=== PATIENT | male | born 1990 | race Two or more races ===

== ENCOUNTER 2021-11-06 14:47 | Outpatient (CLI) | payer BC, SELFPAY | END 2021-11-06 23:59 | disposition short-term general hospital (02) | LOC: LABSPEC 14:48 | PROVIDERS: Visit Provider Physician Assistant Surgical | DX: Z11.52 Encounter for screening for COVID-19 (principal) | CPT/HCPCS: 87635; U0003; U0005 ==

== ENCOUNTER 2022-03-12 23:06 | Emergency (ER) | payer BC, SELFPAY ==
[2022-03-12 23:08] VITALS: BP 116/84; PULSE 85; RESP 18; TEMP 37; O2SAT 100; BMI 27.1
--- NOTE | 2022-03-12 23:24 | ED.VIS.GI ---
HPI HPI - GI History of Present Illness Chief Complaint: Nausea/Vomiting Informant: patient Abdominal Pain/Flank Pain Onset: Today and Hours Context: Gradual Onset Timing: Continuous Quality: Aching and Cramping Location: Epigastric and LUQ Current Severity: Mild Maximum Severity: Mild Worsened by: Nothing Relieved by: Nothing Nausea/Vomiting/Emesis GI Symptom: Positive for Nausea; Negative for Vomiting Onset: Today Severity: Mild Diarrhea/Melena/Hematochezia GI Symptom: Negative for Diarrhea, Melena and Hematochezia Associated Symptoms Associated Symptoms: Negative for Dysuria, Frequency, Hematuria and Urgency Narrative Narrative: 31-year-old male no significant past medical or surgical history. No prior abdominal surgeries. Stated that tonight around 7 PM started having nausea and vomiting. Thought he might have food poisoning. But his significant other ate similar lunch today and had no symptoms. He denies diarrhea. No melena. He had COVID 1 week ago the symptoms have resolved. He denies any dysuria. No fever. He has had no recent abdominal complaints. No weight loss. Prior similar symptoms: No Recent Illness/Hospitalization: No PFSH PFSH Medical History COVID-19 Home Medications ondansetron 4 mg PO Q6H PRN #7 tab 03/13/22 [Rx Last Taken Unknown] Allergy/AdvReac Type Severity Reaction Status Date / Time No Known Allergies Allergy Verified 03/12/22 23:07 Surgical History no surgical history no surgical history Social History Smoking Status: Never smoker ROS ROS ED ROS Narrative Abdominal pain. Nausea. Review of Systems ROS Unobtainable: Denies due to encephalopathy Constitutional Constitutional ED: Denies fever(s) ENT ENT ED: Denies ear pain Cardiovascular Cardiovascular: Denies chest pain Respiratory/Chest Respiratory/Chest: Denies dyspnea Gastrointestinal Gastrointestinal: Reports abdominal pain and nausea; Denies constipation, diarrhea, melena or vomiting Genitourinary Genitourinary ED: Denies dysuria Musculoskeletal Musculoskeletal: Denies myalgias Integumentary Denies rash Neurologic Neurologic: Denies headache(s) Psychiatric Psychiatric: Denies depression Endocrine Endocrinology: Denies polyuria Hematologic/Lymphatic Hematologic/Lymphatic: Denies easy bruising Allergic/Immunologic Allergic/Immunologic ED: Denies urticaria EXAM Physical Exam Narrative Exam Narrative: 31-year-old male no acute distress. Vital signs are stable. He is afebrile. He does not look septic or toxic. H EENT exam unremarkable. Moist membranes. Neck nontender. No lymphadenopathy. Lungs are clear to auscultation. Heart regular rhythm no murmur. Abdomen soft nondistended normal bowel sounds no peritoneal signs. Minimal epigastric tenderness. No rebound, guarding or rigidity. No Butler sign. Absolutely no McBurney's point or lower abdominal tenderness. No hernia or mass. No signs of obstruction. Moves all 4 extremities. Back nontender. Neurologic exam normal. Const Vital Signs: 03/12/22 23:08 03/12/22 23:32 03/12/22 23:56 Temperature 98.6 F Temperature Source Oral Pulse Rate 85 78 Respiratory Rate 18 12 Blood Pressure 116/84 H 76/43 L 99/66 Blood Pressure Mean 94 54 77 Pulse Ox 100 99 Oxygen Delivery Method Room Air Room Air Positive well nourished and well developed; Negative for cachectic, contractures or unkempt General Appearance ED: well developed and NAD; Negative for unkempt, cachectic, contractures or pallor Nutritional Appearance: Negative for cachectic HEENT Reports moist mucous membranes normocephalic and atraumatic Eyes PERRL and EOMs intact bilaterally Neck no lymphadenopathy, supple and no JVD General: Negative for tenderness Resp normal respiratory effort and clear to auscultation bilaterally Auscultation: Negative for rales, rhonchi or wheezes Cardio regular rate, regular rhythm, S1 normal heart sound, S2 normal heart sound and no murmurs GI non-distended and no masses; Negative for non-tender Inspection: Negative for abdominal distention Auscultation: normoactive bowel sounds; Negative for hyperactive bowel sounds or hypoactive bowel sounds Palpation: soft and tender; Negative for guarding, rigid or rebound tenderness present Back/Spine no CVA tenderness General Back: Negative for CVA tenderness Cervical Spine: Negative for cervical spine tenderness Thoracic Spine / Upper Back: Negative for thoracic spinal tenderness Extremity full ROM General Extremety ED: Negative for edema or tenderness General Extremity: Negative for edema Neuro moves all extremities Sensorium / Orientation: alert, oriented to person, oriented to place and oriented to time; Negative for orientation impaired, confused, lethargic or stuporous Motor Exam: strength 5/5 throughout Psych mental status grossly normal and thought process normal Appearance: Negative for unkempt Mood & Affect: Negative for depressed or tearful Skin no wounds General Skin Exam: Negative for jaundice or pallor Lesions: no lesions Rashes: no rashes MDM MDM MDM Narrative Medical decision making narrative: 31-year-old male with upper abdominal discomfort with nausea. He is only mildly tender. Screening labs are being obtained. At this time I do not think he needs any imaging. He will be treated with IV Zofran for nausea. Repeat exam at 12:24 AM. Patient doing well. Pain-free. Nausea resolved. Repeat abdominal exam is nontender. No signs of obstruction. We discussed his test results. He is comfortable being discharged to home. Lab Data Attestation: I reviewed the patient's lab results. Lab results narrative: CBC shows a white count 12.7. H&H is 16 and 49. Platelets of 298. Chemistries on markable. Gap of 5. Normal BUN of 18 creatinine 1.2. Liver enzymes unremarkable ALT slightly elevated at 63. Lipase normal 116. Glucose 140. Labs: Laboratory Results - last 24 hr 03/12/22 03/12/22 23:40 23:40 WBC 12.7 H RBC 5.76 Hgb 16.2 Hct 49.0 MCV 85.1 MCH 28.1 MCHC 33.1 RDW Std Deviation 39.7 RDW Coeff of Diana 12.9 Plt Count 298 MPV 11.1 Immature Gran % (Auto) 0.600 Neut % (Auto) 77.5 H Lymph % (Auto) 12.9 L [place] % (Auto) 7.9 Eos % (Auto) 0.8 Baso % (Auto) 0.3 Absolute Neuts (auto) 9.9 H Absolute Lymphs (auto) 1.64 Nucleated RBC % 0 Sodium 139 Potassium 4.4 Chloride 107 Carbon Dioxide 27.0 Anion Gap 5 BUN 18 Creatinine 1.20 Estim Creat Clear Calc 93.25 Est GFR (MDRD) Af Amer 89 Est GFR (MDRD) Non-Af 74 BUN/Creatinine Ratio 15.0 Glucose 140 H Calcium 8.9 Total Bilirubin 0.60 AST 33 ALT 63 H Alkaline Phosphatase 74 Total Protein 7.6 Albumin 3.9 Globulin 3.7 Albumin/Globulin Ratio 1.1 Lipase 116 Discharge Plan Triage Chief Complaint: Nausea/Vomiting ED Provider: Wilbur Pierre Dx/Rx/DC Orders Instructions: Abdominal Pain, ED Vomiting (Adult) Prescriptions: New ondansetron 4 mg tablet,disintegrating 4 mg PO Q6H PRN (Reason: nausea and vomiting) Qty: 7 RF: 0 Primary Care Provider: Andrzej Arango Referrals: Andrzej Arango, PA [Primary Care Provider] - 3-5 Days if not improving Activity Restrictions/Additional Instructions: Zofran as needed for nausea. Follow-up with your primary care provider if not improving. Return emergency department if you are feeling a lot worse. Flathead diet and slowly increase your diet as tolerated. Disposition Disposition: Home, Self Care
[2022-03-12 23:32] VITALS: BP 76/43
[2022-03-12] MEDS: Ondansetron 4 MG/2 ML Vial IV (23:39)
--- NOTE | 2022-03-12 23:47 | ED.RN ---
Jamal Pearce and this RN at bedside attempting for IV access. Patient c/o dizziness and patients family yelling at RNs to stop. RNs stopped attempting for IV. Family asked if it was necessary for us to get an IV and if we could give him oral zofran instead. Patients family asking for water for patient. RN has informed them the IV is necessary for bloodwork,and give Zofran through IV. RN also informed them the patient was c/o vomiting and we would hold off on giving water. Patients family in hallway yelling for RN to give a bag for patient to throw up. Patient vomited on himself and emesis bag given. IV access by JAMAL Mora. patient changed into gown, cleaned with wash cloth and bed linens changed.
[2022-03-12 23:55] LABS: Absolute Lymphocyte Count 1.64 X10^3/uL (0.83-4.51); Absolute Neutrophil Count 9.9 X10^3/uL (2.0-7.7); Basophil# 0.04 X10^3/uL; Basophil% 0.3 % (0-1); Eosinophils% 0.8 % (0-5); Hemoglobin 16.2 g/dL (13.0-16.5); Lymphocyte # 1.64 X10^3/ul (0.83-4.51); Lymphocyte % 12.9 % (19-41); Mean Corp Hgb Conc 33.1 g/dL (32-36); Mean Corpuscular Hgb 28.1 pg (27.0-32.0); Mean Corpuscular Volume 85.1 fL (80-94); Mean Platelet Vol. 11.1 fl (6.2-12.0); Monocyte% 7.9 % (0-10); NRBC Flagged by Analyzer 0 % (0-5); Neutrophil # 9.85 X10^3/uL (2.7-7.7); Neutrophil % 77.5 % (47-70); Platelet Count 298 K/mm3 (150-450); RBC Distribution Width CV 12.9 % (11.6-14.6); RBC Distribution Width SD 39.7 fl (35.1-43.9); Red Blood Count 5.76 M/mm3 (4.6-6.2); White Blood Count 12.7 K/mm3 (4.4-11.0)
[2022-03-12 23:56] VITALS: BP 99/66; PULSE 78; RESP 12; O2SAT 99
[2022-03-13 00:13] LABS: ALB/GLOB Ratio 1.1 RATIO (0.9-2.4); AST(SGOT) 33 U/L (15-37); Alanine Aminotransfer ALT/SGPT 63 U/L (16-61); Albumin, Serum 3.9 g/dL (3.2-5.0); Alkaline Phosphatase 74 U/L (45-117); Anion Gap 5 (5-15); BUN 18 mg/dL (7-18); Calcium,Total 8.9 mg/dL (8.5-10.1); Chloride 107 mmol/L (98-107); EST Glomerular Filtration Rate 74 mL/min (>60); Est Glom Filt Rate - Afr Amer 89 mL/min (>60); Estimated Creatinine Clearance 93.25 ml/min; Globulin 3.7 g/dL (2.2-4.2); Glucose 140 mg/dL (74-106); Lipase 116 U/L (73-393); Potassium 4.4 mmol/L (3.5-5.1); Protein, Total 7.6 g/dL (6.4-8.2); Sodium Level 139 mmol/L (136-145)
[2022-03-13] MEDS: 0.9% Normal Saline 1,000 ML 500 ML IV (00:36)
[2022-03-13] MEDS: Ondansetron ODT 4 MG Tablet PO (00:36)
[2022-03-13 00:37] VITALS: BP 107/69; PULSE 82; RESP 18; O2SAT 98
== END 2022-03-13 00:40 | disposition home or self-care (01) ==
PROVIDERS: Emergency Provider Emergency Medicine; PCP Physician Assistant; Visit Provider Emergency Medicine
DX: R11.0 Nausea (principal); R19.7 Diarrhea, unspecified; R10.9 Unspecified abdominal pain; K92.1 Melena; Z86.16 Personal history of COVID-19
CPT/HCPCS: 80053; 83690; 85025; 96361; 96374; 99285; J7030; A4216; J2405

== ENCOUNTER 2022-12-15 23:04 | Emergency (ER) | payer BC, SELFPAY ==
[2022-12-15 23:05] VITALS: BP 126/97; PULSE 66; RESP 15; TEMP 36.6; O2SAT 100; BMI 29.2
--- NOTE | 2022-12-15 23:18 | EDS_ITS ---
HPI History of Present Illness Chief Complaint: Eye Problem Informant: patient Onset/Context/Timing Location: Left Eye Onset: Today Context: Sudden Onset Timing: Continuous Worsened by: Opening his eye and moving his eye Relieved by: Erythromycin ophthalmic ointment Associated Symptoms Associated Symptoms - Eyes: Eyelid swelling and Pain History of injury: Yes and Direct trauma Narrative Narrative: Presents with left eye injury that occurred tonight. Patient states he was installing a fan when the plug hit him in the eye. Patient denies any visual changes. Patient states the pain is worse whenever he opens his eyes and moves his eye. Patient admits to some increased redness. Patient states he has a history of frequent corneal abrasions and applied erythromycin ophthalmic ointment to his left eye. Patient states this helped somewhat. Patient denies any headaches. Patient denies any nausea or vomiting. Patient denies any matting or crusting. Prior similar symptoms: Yes [facility] [place] [place] Medical History (Updated 12/15/22 @ 23:[address] Ken Urbano DO) COVID-19 Depression Home Medications desvenlafaxine succinate 50 mg tablet,extended release 24 hr 50 mg PO DAILY 12/15/22 [History Last Taken Unknown] Allergy/AdvReac Type Severity Reaction Status Date / Time No Known Allergies Allergy Verified 12/15/22 23:08 Surgical History no surgical history no surgical history Social History Smoking Status: Never smoker ROS ROS ED Constitutional Constitutional ED: Denies chills or fever(s) Eyes Eyes: Denies blurry vision or change in vision ENT ENT ED: Denies rhinorrhea or sore throat Cardiovascular Cardiovascular: Denies chest pain or palpitations Respiratory/Chest Respiratory/Chest: Denies cough or dyspnea Gastrointestinal Gastrointestinal: Denies nausea or vomiting Genitourinary Genitourinary ED: Denies dysuria or hematuria Musculoskeletal Musculoskeletal: Denies back pain or neck pain Integumentary Denies abscess or rash Neurologic Neurologic: Denies headache(s) or weakness Allergic/Immunologic Allergic/Immunologic ED: Denies mouth swelling or urticaria EXAM Physical Exam Const Vital Signs: 12/15/22 23:05 Temperature 97.9 F Temperature Source Temporal Pulse Rate 66 Respiratory Rate 15 Blood Pressure 126/97 H Blood Pressure Mean 106 Pulse Ox 100 Oxygen Delivery Method Room Air Positive well nourished and well developed General Appearance ED: well developed and NAD Eyes Eyes Narrative: There is some mild edema over the left upper eyelid. Conjunctival was injected on the left. Pupils are equal, round, and reactive to light bilaterally. Extraocular muscles are intact. Anterior chamber is clear. There is no hyphema noted. Patient was unable to tolerate funduscopic examination. Neck supple and no JVD Neuro oriented x3, CN's II-XII intact bilaterally, moves all extremities and no sensory deficits noted Sensorium / Orientation: alert Motor Exam: strength 5/5 throughout MDM MDM MDM Narrative Medical decision making narrative: This is most likely a corneal abrasion due to the trauma. Tetracaine and fluorescein dye will be applied to the left eye. The eye will be examined using a slit lamp. Treatment and Re-Evaluation Narrative: Tetracaine and fluorescein dye was applied. Under slit-lamp examination. There is a corneal abrasion over the inferior central cornea. There is no hyphema. Anterior chamber was clear. There is no cell or flare. Patient was given erythromycin ophthalmic ointment since his ophthalmic ointment has . Patient was instructed to use this 4 times daily. 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 Patient understands and is agreeable with the plan. All questions were answered. Discharge Plan Triage Chief Complaint: Eye Problem ED Provider: Ken Urbano Dx/Rx/DC Orders Clinical Impression: Corneal abrasion, left Instructions: ED Corneal Abrasion Prescriptions: No Action desvenlafaxine succinate 50 mg tablet extended release 24 hr 50 mg PO DAILY Label Comments: TAKE 1 TABLET BY MOUTH EVERY DAY Primary Care Provider: Andrzej Arango Referrals: Andrzej Arango PA [Primary Care Provider] - 2 Days Activity Restrictions/Additional Instructions: Continue using the erythromycin ophthalmic ointment 4 times a day. Disposition Disposition: Home, Self Care
[2022-12-15] MEDS: Fluorescein 1 MG STRIP 1 STRIP OPHTHALMIC (23:28)
[2022-12-15] MEDS: Tetracaine 0.5% Ophthalmic Bottle 1 DRP OPHTHALMIC (23:29)
[2022-12-16] MEDS: Erythromycin Ophthalmic (NSY) 1 GM OPTH.TUBE 1 APPLIC LEFT EYE (01:02)
== END 2022-12-16 01:06 | disposition home or self-care (01) ==
LOC: ED 23:44
PROVIDERS: Emergency Provider Emergency Medicine; PCP Physician Assistant; Visit Provider Emergency Medicine
DX: S05.02XA Injury of conjunctiva and corneal abrasion without foreign body, left eye, initial encounter (principal); W22.8XXA Striking against or struck by other objects, initial encounter
CPT/HCPCS: 99283

== ENCOUNTER 2022-12-16 10:31 | Emergency (ER) | payer BC, SELFPAY ==
[2022-12-16 10:32] VITALS: BP 135/92; PULSE 64; RESP 14; TEMP 35.8; O2SAT 100; BMI 28.9
--- NOTE | 2022-12-16 10:49 | EDS_ITS ---
HPI <PACO Kapadia - Last Filed: 12/16/22 11:48> History of Present Illness Chief Complaint: Eye Problem Narrative Narrative: Patient is a 32-year-old male with no significant medical history. Patient presents the emergency department for ongoing left eye pain. Patient was seen here last night for the same. Patient was putting in a fan, when the cord came down striking him in the left eye. Patient was seen last night by the ER physician here. Patient was placed on ointment, diagnosed with a corneal abrasion in the inferior mid cornea. Patient states today, his eyelid was more swollen, he continued to have pain and is here for reevaluation. He denies any other gross drainage. Denies any other injury PFSH <PACO Kapadia - Last Filed: 12/16/22 11:48> PFSH Medical History (Updated 12/16/22 @ 11:48 by PACO Kapadia) COVID-19 Depression Home Medications desvenlafaxine succinate 50 mg tablet,extended release 24 hr 50 mg PO DAILY 12/15/22 [History Last Taken Unknown] ketorolac 0.4 % eye drops 1 drp LEFT EYE Q6H 2 days #5 mL 12/16/22 [Rx Last Taken Unknown] ketorolac 0.4 % eye drops 1 drp LEFT EYE Q6H PRN eye pain 2 days #5 mL 12/16/22 [Rx Last Taken Unknown] Allergy/AdvReac Type Severity Reaction Status Date / Time No Known Allergies Allergy Verified 12/16/22 10:34 Social History Smoking Status: Never smoker ROS <PACO Kapadia - Last Filed: 12/16/22 11:48> ROS ED ROS Narrative Constitutional: Negative for fever, chills, weight loss, weakness Eyes: Negative for vision loss, vision change, double vision. Positive for left eye swelling, left eye tearing, pain to the left eye. Light sensitivity. ENT: Negative for any sore throat, ear pain, congestion Cardiovascular: Negative for any chest pain, tightness, palpitations Respiratory: Negative for any cough, sputum production, hemoptysis, dyspnea, dyspnea on exertion, orthopnea Gastrointestinal: Negative for any abdominal pain, nausea, vomiting, diarrhea, constipation, blood in stool, blood in vomit : Negative for any urinary frequency, dysuria, retention, blood in urine Muscle skeletal: Negative for any muscle joint pain, stiffness, myalgias, arthralgias, neck pain, back pain Neurological: Negative for any headache, syncope, numbness or tingling, dizziness Skin: Negative for any rashes, lumps, itching, abrasions, lacerations Psychiatric: Negative for any depression, anxiety, stress, suicidal ideation, homicidal ideation Hematologic: Negative for any easy bruising, excessive bruising, easy bleeding Allergies: Negative for any eczema, hives, rash EXAM <PACO Kapadia - Last Filed: 12/16/22 11:48> Physical Exam Narrative Exam Narrative: Vital signs reviewed. HEET: Head normocephalic atraumatic, TMs clear bilaterally. Posterior pharynx is clear, moist mucous membranes. Nares clear bilaterally. Pupils are equal round reactive to light. Patient does appear to be in minor distress secondary to left eye pain and swelling. Patient does have slight edema to the left upper eyelid however, this does not appear to be cellulitis, there is no foreign body noted. I was able to fluorescein stain, used tetracaine for the patient. Patient had immediate relief. I appreciated a midline inferior corneal abrasion, no Delmy sign. This is consistent with the last night examination. There is no foreign body noted. Neck: Supple with no lymphadenopathy or tenderness. No signs of meningismus, negative jolt sign. Cardiac: Regular rate and rhythm no murmurs gallops or rubs, equal peripheral pulses bilaterally. Respiratory: Lungs clear to auscultation bilaterally. No chest tenderness. Abdomen: Soft, nontender, nondistended. No abdominal bruit or pulsatile masses. No hepatosplenomegaly Extremities: No peripheral edema, no signs of gross trauma or deformity. Active full range of motion of all extremities. Neuro: Cranial nerves II through XII intact, no focal neurological deficits. Skin: Clean dry and intact with no rash, purpura, petechiae, vesicles or pustules. Backs/flank: No CVA tenderness, no midline spinal tenderness, no deformity. Psych: Normal mood and affect. No SI, HI or acute psychosis. Const Vital Signs: 12/16/22 10:32 Temperature 96.4 F L Temperature Source Temporal Pulse Rate 64 Respiratory Rate 14 Blood Pressure 135/92 H Blood Pressure Mean 106 Pulse Ox 100 Oxygen Delivery Method Room Air Positive well nourished and well developed General Appearance ED: well developed MDM <PACO Kapadia - Last Filed: 12/16/22 11:48> [facility] Treatment and Re-Evaluation Narrative: Patient appears to be in slight distress secondary to pain to the left eye. Patient had symptoms relieved once tetracaine was in place. I did fluorescein the patient's eye, the patient's exam was consistent with the exam from last evening. Patient does have a corneal abrasion to the 6:00 area midline. Just inferior to the pupil. There is no Delmy sign, no signs or symptoms of deep tissue infection. I believe the swelling to the left eyelid is secondary to gravity, this did happen when he woke up this morning. The patient will be given ketorolac eyedrops, he will continue his ophthalmic ointment. 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 Patient and were given discharge instructions. They were both given return precautions. They are happy with the plan of care and is stable for discharge <Dr. Ricardo Willoughby DO - Last Filed: 12/16/22 15:03> [facility] MDM Narrative Medical decision making narrative: Interventions / MDM: Differential diagnosis: Corneal abrasion, corneal ulcer, left eye injury patient Diagnosis considered but do not suspect: N/A My EKG interpretation: N/A Imaging independently reviewed and interpreted by myself: N/A External documents reviewed: N/A Test considered but not ordered:N/A ED course: Attending note: Patient seen and evaluated with landing support specialist. I perform my own [id number] evaluation. I agree with the plan of work-up. Seen yesterday. Accidental cord accident to the left eye. Put on erythromycin ointment. Increasing photophobia and discomfort. Exam noted abrasion 6 to 7 o'clock position left cornea. No ulcers. Negative Delmy's. Discussed continuing ointment as prescribed, NSAID drops were provided. Eye patch provided to help with comfort. He is given follow-up with [facility] for evaluation. Re-evaluation: stable Disposition discussed with patient/family/significant other: patient and significant other Case discussed with consulting clinician: N/A Discharge Plan Triage Chief Complaint: Eye Problem ED Midlevel Provider: Stoney Marquez ED Provider: Ricardo Willoughby Dx/Rx/DC Orders Clinical Impression: Corneal abrasion, left, Edema eyelid Instructions: Corneal Injury Prescriptions: New ketorolac 0.4 % drops 1 drp LEFT EYE Q6H PRN (Reason: eye pain) 2 Days Qty: 5 0RF ketorolac 0.4 % drops 1 drp LEFT EYE Q6H 2 Days Qty: 5 0RF No Action desvenlafaxine succinate 50 mg tablet extended release 24 hr 50 mg PO DAILY Label Comments: TAKE 1 TABLET BY MOUTH EVERY DAY Primary Care Provider: Andrzej Arango Referrals: Bertin Wright MD [Med Staff - Active Staff] - Andrzej Arango PA [Primary Care Provider] - Activity Restrictions/Additional Instructions: Please keep cold compress. Use the ointment as directed. Use the ketorolac drops as directed. You need to follow-up with ophthalmology. You can also purchase a eye patch that could help pain control. Disposition Disposition: Home, Self Care Discharge Date/Time: 12/16/22 12:24
[2022-12-16] MEDS: Fluorescein 1 MG STRIP 1 STRIP LEFT EYE (11:43)
[2022-12-16] MEDS: Tetracaine 0.5% Ophthalmic Bottle 1 DRP LEFT EYE (11:43)
--- NOTE | 2022-12-16 12:22 | ED.RN ---
PER DR. NOVOA, EYE PATCH APPLIED TO LEFT EYE. PT INSTRUCTED ON PROPER USAGE AND PT DEMONSTRATES APPROPRIATE KNOWLEDGE PRIOR TO DISCHARGE.
[2022-12-16 12:23] VITALS: RESP 16
== END 2022-12-16 12:24 | disposition home or self-care (01) ==
PROVIDERS: Emergency Provider Emergency Medicine; PCP Physician Assistant; Visit Provider Emergency Medicine
DX: R60.9 Edema, unspecified (principal); S05.02XD Injury of conjunctiva and corneal abrasion without foreign body, left eye, subsequent encounter; H53.149 Visual discomfort, unspecified; W22.8XXD Striking against or struck by other objects, subsequent encounter
CPT/HCPCS: 99282